=== PATIENT | female | born 1990 | race Caucasian/White ===

== ENCOUNTER 2020-01-09 09:46 | Emergency (ER) | payer OTHER, SELFPAY ==
[2020-01-09 09:55] VITALS: BP 115/71; PULSE 79; RESP 16; TEMP 37.1; O2SAT 100
--- NOTE | 2020-01-09 10:36 | ED.EAR ---
HPI - Ear Problem General Chief complaint: Ear Stated complaint: hearing loss Time Seen by Provider: 01/09/20 10:35 Source: patient and RN notes reviewed Mode of arrival: ambulatory Limitations: no limitations History of Present Illness HPI Narrative: 29-year-old female presents with concern for decreased hearing in her right ear. Reports she saw her primary care doctor last week who told her she had a wax buildup in the ear. Reports the doctor used tweezers to attempt to remove the wax however pushed it in further. Reports since then she has been using Debrox daily. Reports yesterday she noticed when she put her phone to her right ear the sound was muffled. MD Complaint: decreased hearing Related Data Allergies Allergy/AdvReac Type Severity Reaction Status Date / Time Cat Dander Allergy Intermediate HIVES & Uncoded 04/11/19 10:26 ASTHMA Review of Systems Review of Systems: Narrative: CONSTITUTIONAL: Denies malaise, chills, sweats, or fever. EYES: Denies visual changes, redness, or discharge. ENT: Denies rhinorrhea, congestion, sinus pain, otalgia or sore throat. Reports decreased hearing on the right ear CARDIOVASCULAR: Denies chest pain, palpitations RESPIRATORY: Denies cough or dyspnea. NEUROLOGIC: Denies numbness, weakness, or headache. All systems reviewed & are unremarkable except as noted in HPI and below PMFSH Past Medical History Medical History (Updated 01/09/20 @ 11:06 by Janina Walker NP) Acne Allergic asthma Allergic rhinitis due to pollen Pollen allergies Family History Family History (Updated 08/18/14 @ 12:46 by DOCTOR UNKNOWN) Mother Asthma Other Diabetes mellitus Social History Social History (Updated 01/03/20 @ 11:06 by Roseanne Pacheco) Social History: Smoking status: Never smoker Second hand tobacco smoke exposure: No Alcohol intake: current Substance use: never Substance use type: does not use Additional occupation/education comments: Homemaker Gender identity (if verbalized by the patient): Female Comments At time of signature, agree with nursing past medical, surgical, social and family history. There is no relevant family history pertinent to the presenting complaint Exam Narrative: Exam Narrative: GENERAL: Well-appearing, well-nourished, and in no acute distress. HEAD: Normocephalic, atraumatic. EYES: PERRLA, conjunctivae clear, and EOMI. No nystagmus. ENT: Nares clear, turbinates pink, no rhinorrhea or epistaxis. Mucous membranes moist. Left TM pearly marina with sharp light reflex bilaterally; no tragal tenderness. Right TM not visible due to cerumen impaction. Positive White test NECK: Supple. CHEST: No respiratory distress. Speaks in full sentences. HEART: Regular rate and rhythm. SKIN: Warm, dry NEURO: Alert and oriented x3. No focal deficits. Cranial nerves II through XII grossly intact PSYCH: Normal mood and affect Course Course Emergency Course: Patient is aware of diagnosis, understands and agrees to treatment plan. Anticipatory guidance given. Patient agrees to follow-up as directed and is aware of reasons to seek care at the emergency department. Portions of this record may have been created with voice recognition software Vital Signs Vital signs: Vital Signs Temperature 98.8 F 01/09/20 09:55 Pulse Rate 79 01/09/20 09:55 Respiratory Rate 16 01/09/20 09:55 Blood Pressure 115/71 01/09/20 09:55 Pulse Oximetry 100 01/09/20 09:55 Temperature 98.8 F 01/09/20 09:55 Pulse Rate 79 01/09/20 09:55 Respiratory Rate 16 01/09/20 09:55 Blood Pressure 115/71 01/09/20 09:55 Pulse Oximetry 100 01/09/20 09:55 Reviewed. Procedures Ear Wax Removal Right Ear: Ear Wax Removal Date: 01/09/20 Ear Wax Removal Time: 11:09 Cerumenolytic Used: other (Hydrogen peroxide and water) Results: Re-examined: cerumen removed completely TM Examination: TM(s) intact, normal a
== END 2020-01-09 11:12 | disposition home or self-care (01) ==
PROVIDERS: Emergency Provider Nurse Practitioner; PCP Family Medicine
DX: H61.21 Impacted cerumen, right ear (principal)
CPT/HCPCS: 69210; 99211; 99212; G0463

== ENCOUNTER 2024-01-16 11:50 | Outpatient (CLI) | payer OTHER, SELFPAY ==
--- NOTE | ~2024-01-16 | XR_ITS ---
EXAMINATION: XR chest 2V DATE: 01/16/2024 12:03 INDICATION: Left-sided chest pain TECHNIQUE: PA and lateral views of the chest are obtained. COMPARISON: 11/11/2017 FINDINGS: The lungs are free of acute opacities. No pleural effusion or pneumothorax. The cardiomedia stinal silhouette is normal. The visualized bones and soft tissues are unremarkable. IMPRESSION: 1. No acute cardiopulmonary abnormality. Reviewed, dictated and finalized at location B. NG MACHINES SALESPERSON
== END 2024-01-16 11:51 ==
LOC: MICIMG 11:53
PROVIDERS: PCP Physician Assistant; Visit Provider Physician Assistant
DX: R07.81 Pleurodynia (principal)
CPT/HCPCS: 71046

== ENCOUNTER 2024-02-06 11:15 | Outpatient (CLI) | payer OTHER, SELFPAY ==
--- NOTE | ~2024-02-06 | CT_ITS ---
EXAMINATION: CTA chest PE protocol DATE: 02/06/2024 13:12 INDICATION: Pleuritic left chest pain TECHNIQUE: Computed tomography angiography (CTA) of the chest was performed with 100 mL Omnipaque-350 intravenous contrast timed to evaluate the pulmonary arteries. Coronal maximum intensity projection 3D-reconstructions were created by the technologist. Automated exposure control and iterative reconst ruction technique were employed. Exam dose: 208.07 mGy-cm total exam DLP. COMPARISON: 01/16/2024 PA and lateral chest FINDINGS: Normal heart size. No hilar or mediastinal mass lesion or lymphadenopathy. No thoracic aort ic aneurysm or dissection. No central pulmonary emboli are evident. No pleural calcification, thicken ing or pleural effusion. Normal morphology of the adrenal glands. The lungs are clear of infiltrate or consolidation. No suspicious osteolytic or osteoblastic lesions. IMPRESSION: No significant abnormality Reviewed, dictated and finalized at Location A. Reviewed, dictated and finalized at location A. IMPRESSION: No significant abnormality
== END 2024-02-06 11:16 ==
PROVIDERS: PCP Physician Assistant; Visit Provider Physician Assistant
DX: R07.81 Pleurodynia (principal)
CPT/HCPCS: 71275; Q9967

== ENCOUNTER 2025-07-13 08:25 | Outpatient (CLI) | payer OTHER, SELFPAY ==
--- NOTE | ~2025-07-13 | XR_ITS ---
EXAMINATION: XR chest 2V 07/13/2025 09:14 INDICATION: Left-sided chest pain. History of asthma. PROCEDURE: 2 view chest COMPARISON: 01/16/2024 FINDINGS: The lungs are clear. The cardiomediastinal silhouette is within normal limits. There are no pleural effusions. There is no pneumothorax suspected. IMPRESSION: 1: NO ACUTE CARDIOPULMONARY DISEASE. Reviewed, dictated and finalized at location O.
== END 2025-07-13 08:26 | disposition home or self-care (01) ==
LOC: MICIMG 08:27
PROVIDERS: PCP Physician Assistant; Visit Provider Physician Assistant
DX: N64.4 Mastodynia (principal)
CPT/HCPCS: 71046

== ENCOUNTER 2025-08-12 08:36 | Outpatient (CLI) | payer OTHER, SELFPAY ==
--- NOTE | 2025-08-12 | ECHO_ITS ---
Patient Info Name: Aracelis Arrieta Age: 35 years : 1990 Gender: Female Ht: 68 in Wt: 153 lbs BSA: 1.83 m2 HR: 77 bpm BP: 134 / 89 mmHg Technical Quality: Good Exam Date: 08/12/2025 9:07 AM Patient Status: O Admit Date: 08/12/2025 Exam Type: CA echo doppler color flow Complete two-dimensional, color flow and Doppler transthoracic echocardiogram is performed. Grade And Center Marker: Lorena Pena Attending Provider: Jesusita Kwon Summary 1. Complete two-dimensional, color flow and Doppler transthoracic echocardiogram is performed. 2. Left ventricular systolic function is normal, estimated at 55-60. 3. The left ventricular diastolic function is normal. 4. The aortic root size at the sinus of Valsalva is normal. 5. The prox ascending aorta size is normal. Left Ventricle Left ventricular chamber dimension is normal. Left ventricular systolic function is normal, estimated at 55-60. There is no increased left ventricular wall thickness. Left ventricular septal wall motion is normal. The left ventricular diastolic function is normal. Right Ventricle Right ventricular chamber dimension is normal. Right ventricular systolic function is normal. Left Atria Left atrial chamber dimension is normal. Right Atria Right atrial chamber dimension is normal. Atrial Septum Intact interatrial septum visualized by color flow imaging. Aortic Valve The aortic valve is trileaflet. There is no aortic valve sclerosis. There is no aortic valve stenosis. There is no aortic valve regurgitation. Pulmonic Valve The pulmonic valve is normal. There is no pulmonic valve stenosis. There is no pulmonic regurgitation. Mitral Valve The mitral valve has normal leaflets. There is no mitral valve stenosis. There is no mitral valve regurgitation. Tricuspid Valve The tricuspid valve leaflets are normal. There is no significant tricuspid valve stenosis. There is no tricuspid valve regurgitation. Pericardium/Pleural The pericardium appears normal. There is no pericardial effusion. Inferior Vena Cava Normal inferior vena cava with >50% collapse upon inspiration consistent with normal right atrial pressure, 5 mmHg. Aorta The aortic root size at the sinus of Valsalva is normal. The prox ascending aorta size is normal. Left Ventricular Outflow Tract Name Value Normal LVOT 2D LVOT Diameter 2.0 cm LVOT Doppler LVOT Peak Velocity 119 cm/s LVOT Peak Gradient 6 mmHg LVOT Mean Gradient 3 mmHg LVOT VTI 24 cm LVOT Stroke Volume 79 ml LVOT CO 6.1 l/min LVOT CI 3.3 l/min/m2 Pulmonic Valve Name Value Normal RVOT Doppler RVOT Peak Velocity 75 cm/s RVOT Peak Gradient 2 mmHg PV Doppler PV Peak Velocity 88 cm/s PV Peak Gradient 3 mmHg Mitral Valve Name Value Normal MV Diastolic Function MV E Peak Velocity 80 cm/s MV A Peak Velocity 74 cm/s MV E/A 1.1 MV Decel Time (PW) 246 ms MV Annular TDI MV E/e' (Septal) 4.9 MV E/e' (Lateral) 3.9 MV E/e' (Average) 4.4 Tricuspid Valve Name Value Normal Estimated PAP/RSVP RA Pressure 5 mmHg <=5 Aortic Valve Name Value Normal AV Doppler AV Peak Velocity 129 cm/s AV Peak Gradient 7 mmHg AV Area (Cont Eq Tony) 3.0 cm2 AV DI (Tony) 0.92 AV Regurgitation 2D LVOT Area 3.3 cm2 Ventricles Name Value Normal LV Dimensions 2D/MM IVS Diastolic Thickness (2D) 0.9 cm 0.6-1.0 LVID Diastole (2D) 4.9 cm 3.8-5.2 LVIW Diastolic Thickness (2D) 0.9 cm 0.6-0.9 LVID Systole (2D) 3.4 cm 2.2-3.5 LVOT Diameter 2.0 cm LV Mass (2D Cubed) 159.57 g 67.00-162.00 LV Mass Index (2D Cubed) 87 g/m2 43-95 Relative Wall Thickness (2D) 0.39 <=0.42 LV Fractional Shortening/Ejection Fraction 2D/MM LV Fractional Shortening (2D) 30 % 27-45 LV EF (2D Teichholz) 57 % LV Diastolic Volume (4C MOD) 126 ml LV EF (4C MOD) 58 % LV Diastolic Volume (2C MOD) 111 ml LV EF (2C MOD) 54 % LV Diastolic Volume (BP MOD) 120 ml 46-106 LV Diastolic Volume Index (BP MOD) 66 ml/m2 29-61 LV Systolic Volume (BP MOD) 54 ml 14-42 LV Systolic Volume Index (BP MOD) 29 ml/m2 8-24 LV EF (BP MOD) 55 % 54-74 LV Diastolic Length (4C) 8.2 cm LV Systolic Length (4C) 6.5 cm LV Stroke Volume (4C MOD) 72 ml Atria Name Value Normal LA Dimensions LA Volume (4C A-L) 41 ml LA Volume (BP A-L) 37 ml RA Dimensions RA Systolic Major [place] Length (4C) 4.8 cm 2.2-2.8 RA Area (4C) 13.4 cm2 <=18.0 Report Signatures
--- OUTSIDE RECORDS SUMMARY | 2025-08-12 08:44 | XMS_ITS | Clinical Summary ---
[email or web address] Address [address] [facility] Attn: Epic Prelude ADT ANDRZEJ BATES [id number] Care Team Providers [facility] Director Name Role Phone Unavailable Primary Care Provider Unavailabl e Allergies No known active allergies Medications amoxicillin-cla vulanate (AUGMENTIN) 875-125 mg tablet Take 1 tablet every 12 hours by oral route. 14 Tablet 08/20/2022 2:24 PM CDT 2 Active budesonide-form oteroL (Symbicort) 160-4.5 mcg/actuation HFA Aerosol Inhaler Inhale 2 inhalations twice a day by inhalation route. 30.6 Gram 3 11/05/2023 11:56 AM MANAGER GLOBAL 3 Active fluticasone propionate (FLONASE) 50 mcg/spray [place], Suspension nasal inhaler Administer 2 Sprays in each nostril once daily as directed. 48 Gram 10/29/2023 9:12 AM MANAGER GLOBAL 3 Active azithromycin (ZITHROMAX) 250 mg tablet TAKE 2 TABLETS (500 MG) BY ORAL ROUTE ONCE DAILY FOR 1 DAY, THEN 1 TABLET (250 MG) BY ORAL ROUTE ONCE DAILY FOR 4 DAYS 6 Tablet 08/21/2023 8:24 AM CDT 3 Active methylPREDNISol one (Medrol, [place],) 4 mg Tablets, Dose Pack Take as directed on package. 21 Tablet 09/05/2023 3:46 PM CDT 3 Active methylPREDNISol one (Medrol, [place],) 4 mg Tablets, Dose Pack take as directed 21 Tablet 01/13/2024 8:25 AM MANAGER GLOBAL 4 Active fluticasone propion-[place] roL (Advair HFA) 115-21 mcg/actuation HFA Aerosol Inhaler Take 2 Puffs by inhalation 2 times daily. 12 Gram 5 4 Active budesonide-form oteroL (SYMBICORT) 160-4.5 mcg/actuation HFA Aerosol Inhaler Inhale 2 puffs by mouth twice daily 10.3 Gram 11 4 Active albuterol sulfate HFA 90 mcg/actuation aerosol inhaler Inhale 2 puffs by mouth every 4 hours as needed. 8.5 Gram 3 04/26/2025 3:20 PM CDT 4 Active triamcinolone acetonide (KENALOG) 0.1 % Cream Apply to eczema areas twice daily as needed for flare-up. 45 Gram 07/23/2024 8:20 AM CDT 4 Active fluticasone propionate (FLONASE) 50 mcg/spray [place], Suspension nasal inhaler Administer 2 sprays in each nostril once daily as needed 16 Gram 2 02/19/2025 12:24 PM CDT 5 Active fluticasone propion-[place] roL (ADVAIR DISKUS,WIXELA INHUB) 250-50 mcg/dose disk inhaler Take 1 Puff by inhalation 2 times daily. 60 Each 5 07/13/2025 2:07 PM CDT 5 Active montelukast (SINGULAIR) 10 mg tablet Take 1 Tablet (10 mg) by mouth daily. 90 Tablet 3 07/13/2025 2:07 PM CDT 5 Active Encounters Date Type Department Care Team Description 07/27/2025 External Device Data [facility] Provider, Abstract 06/15/2025 External Device Data [facility] Provider, Abstract from Last 3 Months Social History Tobacco Use Types Packs/Day Years Used Date Smoking Tobacco: Never Assessed Comments Unknown Sex and Gender Information Value Date Recorded Sex Assigned at Not on file Legal Sex Female 3:27 PM CDT Gender Identity Not on file Sexual Orientation Not on file Plan of Treatment Health Maintenance Due Date Last Done Comments DTAP/TDAP/TD VACCINES (1 - Tdap) 2011 HEPATITIS B VACCINES (1 of 3 - 19+ 3-dose series) 03/11 HPV/Cotest (21-29) 2013 HPV VACCINES (1 - 3-dose SCDM series) 2019 CERVICAL CANCER SCREENING 2022 HPV/Cotest (30-65) 2022 PAP SMEAR 2022 INFLUENZA VACCINE (#1) 2025 Insurance RX [employer] (INTERNAL) [facility]
== END 2025-08-12 08:37 | disposition home or self-care (01) ==
LOC: ANHCARD 08:39
PROVIDERS: PCP Physician Assistant; Visit Provider Physician Assistant
DX: Z13.6 Encounter for screening for cardiovascular disorders (principal); Z82.49 Family history of ischemic heart disease and other diseases of the circulatory system
CPT/HCPCS: 93306

== ENCOUNTER 2025-08-15 07:48 | Outpatient (CLI) | payer OTHER, SELFPAY ==
--- NOTE | ~2025-08-15 | MM_ITS ---
EXAMINATION: MM diagnostic juli BI w lou INDICATION: 35-year old female; nonfocal LEFT Breast pain for 2 months which has now lessened. No palpable lumps, no trauma, and no nipple discharge. COMPARISON: Baseline TECHNIQUE: Digital breast tomosynthesis CC and MLO of Both breasts and True lateral view of Both breasts were obtained with computer-aided detection to assist in interpretation of the study. FINDINGS: There are scattered areas of fibroglandular density. There are no suspicious masses, calcifications, architectural distortion or other abnormalities in Both breasts. IMPRESSION: No evidence of malignancy in Both breasts. RECOMMENDATIONS: 1. Clinical management of patient's breast pain. 2. If the patient has high risk factors for developing breast cancer, such as, but not limited dense breasts, positive gene markers, first degree relative with breast cancer which is not tested for Gene markers of greater than 20% lifetime risk of developing breast cancer, supplemental breast MRI screening (ultrasound if MRI is contraindicated), in addition to annual screening mammography, should be considered and discussed with the patient. BI-RADS 2, BENIGN Reviewed, dictated and finalized at location B. IMPRESSION: No evidence of malignancy in Both breasts. RECOMMENDATIONS: 1. Clinical management of patient's breast pain. 2. If the patient has high risk factors for developing breast cancer, such as, but not limited dense breasts, positive gene markers, first degree relative wit h breast cancer which is not tested for Gene markers of greater than 20% lifeti me risk of developing breast cancer, supplemental breast MRI screening (ultraso und if MRI is contraindicated), in addition to annual screening mammography, sh ould be considered and discussed with the patient. BI-RADS 2, BENIGN
== END 2025-08-15 07:49 | disposition home or self-care (01) ==
LOC: MICIMG 07:49
PROVIDERS: PCP Physician Assistant; Visit Provider Physician Assistant
DX: N64.4 Mastodynia (principal)
CPT/HCPCS: 77062; 77066; G0279